=== PATIENT | female | born 1950 | race Hispanic/Latino ===

== ENCOUNTER 2019-02-26 18:40 | Emergency (ER) | payer MEDICARE ==
[2019-02-26] MEDS ORDERED: SODIUM CHLORIDE 0.9% 1000ML 1,000 ML IV STA (19:07)
[2019-02-26] MEDS ORDERED: MORPHINE SULFATE INJ 4 MG/ML INJ 1ML IV ONE (19:07)
[2019-02-26] MEDS ORDERED: ONDANSETRON HCL INJ 2MG/ML 2ML 2 MG/ML VIAL IV ONE (19:07)
[2019-02-26 19:49] LABS: BASOPHILS # (AUTO) 0.1 (0.0-0.1); BASOPHILS % 0.6 % (0.0-1.0); EOSINOPHILS # (AUTO) 0.3 (0.0-0.4); HEMATOCRIT 43.9 % (34.2-44.1); HEMOGLOBIN 14.3 g/dL (12.0-16.0); LYMPHOCYTES # (AUTO) 3.4 (1.0-3.2); LYMPHOCYTES % 33.6 % (18.0-39.1); MEAN CORPUSCULAR HEMOGLOBIN 28.4 pg (28-32); MEAN CORPUSCULAR HGB CONC 32.6 g/dL (31-35); MEAN CORPUSCULAR VOLUME 87.1 fL (81-99); MONOCYTES # (AUTO) 0.9 (0.2-0.8); NEUTROPHILS # (AUTO) 5.4 (2.1-6.9); NEUTROPHILS % 53.2 % (38.7-80.0); PLATELET COUNT 261 x10e3/uL (140-360); RED BLOOD COUNT 5.04 x10e6/uL (3.6-5.1); RED CELL DISTRIBUTION WIDTH 14.1 % (11.7-14.4)
[2019-02-26 19:59] LABS: INR 0.82; PROTHROMBIN TIME 11.8 seconds (11.9-14.5)
[2019-02-26 20:04] LABS: PARTIAL THROMBOPLASTIN TIME 22.5 seconds (23.8-35.5)
[2019-02-26 20:08] LABS: ALBUMIN 3.6 g/dL (3.5-5.0); ALBUMIN/GLOBULIN RATIO 1.1 (0.8-2.0); ANION GAP 13.5 mmol/L (8-16); CALCIUM 9.5 mg/dL (8.4-10.2); CREATININE, SERUM 1.13 mg/dL (0.57-1.11); POTASSIUM 4.5 mmol/L (3.5-5.1)
[2019-02-26 20:14] LABS: CREATINE KINASE MB 0.5 ng/mL (0-5.0)
[2019-02-26] MEDS ORDERED: INSULIN REGULAR, HUMAN 100 UNIT/1 ML 3ML VIAL IV ONE (20:30)
[2019-02-26] MEDS ORDERED: INSULIN REGULAR, HUMAN 100 UNIT/1 ML 3ML VIAL SQ ONE (20:45)
--- NOTE | 2019-02-26 20:49 | Diagnostic Imaging Report ---
EXAMINATION: CHEST SINGLE (PORTABLE) INDICATION: ^ERMD ORDER ^[id number] ^193 ^Y COMPARISON: None FINDINGS: AP view TUBES and LINES: None. LUNGS: Suboptimal exam due to underpenetration. Lungs are well inflated. Reticular opacities in both lung bases. PLEURA: No pleural effusion or pneumothorax. HEART AND MEDIASTINUM: Mild enlargement of the cardiac silhouette. BONES AND SOFT TISSUES: No acute osseous lesion. Soft tissues are unremarkable. UPPER ABDOMEN: No free air under the diaphragm. IMPRESSION: Suboptimal evaluation of the lungs but appears to be increased reticular opacities in both lung bases due to edema or atypical infection. Recommend repeat upright PA and lateral chest x-ray. Signed by: Dr. Alyx Ghosh M.D. on 02/26/2019 8:46 PM
--- NOTE | 2019-02-26 21:38 | Diagnostic Imaging Report ---
CT Abdomen And Pelvis with Intravenous Contrast INDICATION: Right-sided abdominal pain, diarrhea for a few weeks ^right sided abd pain ^[id number] ^[id number] TECHNIQUE: Thin collimation axial images obtained from the diaphragm to the level of the pubic symphysis following the uneventful administration of 100 cc of low osmolar, nonionic intravenous contrast. Dose reduction techniques used: Automated exposure control, adjustment of the mAs and/or kVp according to patient size, standardized low-dose protocol, and/or iterative reconstruction technique. RADIATION DOSE: Total DLP: 851.8 mGy*cm Estimated effective dose: (DLP x 0.015 x size factor) mSv CTDIvol has been reviewed. It is below the limits set by the Radiation Protocol Committee (RPC). COMPARISON: None. ABDOMEN FINDINGS: Lung Bases: Subsegmental atelectasis/scar in the left lung base. Visualized portion of the mediastinum is normal. Liver: Moderate steatosis. The right lobe measures 20 cm in length. No evidence for mass. Gallbladder: Absent. No biliary ductal dilatation. Pancreas: Mild fatty atrophy without mass or ductal dilatation. Spleen: Normal in size. No evidence of mass.. Adrenal Glands: Nodule in the right adrenal gland measures 1.5 x 1.2 cm. Left adrenal gland is normal. Kidneys: Right: Normal enhancement. No soft tissue mass. No hydronephrosis. Left: Normal enhancement. No soft tissue mass. No hydronephrosis. Lymph Nodes: No enlarged abdominal or retroperitoneal lymph nodes. Aorta: Normal in diameter with scattered calcifications PELVIS FINDINGS: Bowel: Stomach: Normal. Small Bowel: The terminal ileum contain inspissated enteric contents without dilatation or abnormal mural enhancement. Large Bowel: Moderate burden of stool throughout. No focal mural thickening or dilatation. Appendix: Normal. Bladder: Normal. The uterus is atrophic. No adnexal mass. Peritoneum/retroperitoneum: No free fluid or fluid collection. Bones: Mild degenerative changes of the spine. No compression deformities or listhesis. Soft tissues: Lipoma of the right external oblique in the right upper quadrant measures 9.8 x 6.9 x 10 cm. IMPRESSION: 1. Inspissated enteric contents of the terminal ileum without bowel obstruction or associated inflammation. This may be secondary to dehydration or constipation. 2. Moderate burden of stool throughout the large bowel. Please correlate for signs/symptoms of constipation. Normal appendix. 3. Cholecystectomy. Normal biliary tree. 4. Hepatomegaly. Moderate steatosis. 5. 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 6. Right adrenal nodule, statistically an adenoma. This can be confirmed with CT or MRI dedicated to the adrenal glands. Signed by: Dr. Juan Krishnamurthy MD on 02/26/2019 9:35 PM
[2019-02-26 22:05] VITALS: BP 127/61
[2019-02-26] MEDS ORDERED: SODIUM CHLORIDE 0.9% 50ML 50 ML ONE (22:32)
[2019-02-26] MEDS ORDERED: IOPAMIDOL 370 MG/ML 200 ML INFUS..BTL INJ ONE (22:33)
== END 2019-02-26 22:00 | disposition home or self-care (01) ==
LOC: ER 18:40
DX: R10.11 Right upper quadrant pain (principal); R11.2 Nausea with vomiting, unspecified; R63.4 Abnormal weight loss; K59.00 Constipation, unspecified; I10 Essential (primary) hypertension; E11.9 Type 2 diabetes mellitus without complications
CPT/HCPCS: 36415; 71045; 74177; 80053; 82150; 82550; 82553; 82948; 83690; 84484; 85025; 85610; 85730; 93005; 96374; 99284; J2270; J2405; J7030; Q9967